=== PATIENT | male | born 2000 | race Caucasian/White ===

== ENCOUNTER 2019-06-02 12:19 | Outpatient (CLI) | payer MEDICARE, MEDICAID | END 2019-06-02 23:59 | disposition home or self-care (01) | LOC: CVU 12:19 → EDSEX 13:00 → CVU 23:59 | PROVIDERS: ATTEND Internal Medicine | DX: J45.909 Unspecified asthma, uncomplicated (principal) | CPT/HCPCS: 93306 ==